=== PATIENT | female | born 1970 | race Caucasian/White ===

== ENCOUNTER → 2016-11-03 | Outpatient (CLI) | payer BC ==
--- NOTE | 2016-11-03 15:28 | US ---
EXAMINATION TYPE: US thyroid st tissue head/neck DATE OF EXAM: 11/03/2016 1:01 PM COMPARISON: NONE CLINICAL HISTORY: E04.9 NONTOXIC GOITER. GLAND SIZE: Right Lobe: 4.8 x 1.4 x 1.4 cm Overall Parenchyma: homogenous Left Lobe: 4.4 x 1.4 x 1.1 cm Overall Parenchyma: homogeneous Isthmus Thickness: 0.2 cm NODULES RIGHT: # of nodules measured on right: 0 LEFT: # of nodules measured on left: 0 ISTHMUS: # of nodules measured in the isthmus: 0 Bilateral neck scanned, no evidence of lymphadenopathy. IMPRESSION: No evidence of solid or cystic thyroid nodule.
== END | disposition home or self-care (01) ==
LOC: RADUSWWP 12:50
PROVIDERS: ATTEND Family Medicine
DX: E04.9 Nontoxic goiter, unspecified (principal)
CPT/HCPCS: 76536

== ENCOUNTER → 2017-10-12 | Outpatient (CLI) | payer BC ==
--- NOTE | 2017-10-13 11:56 | MM ---
Reason for exam: screening (asymptomatic). Last mammogram was performed 1 year and 6 months ago. History: Took hormonal contraceptives for 2 years. Physical Findings: A clinical breast exam by your physician is recommended on an annual basis and results should be correlated with mammographic findings. MG Screening Mammo w CAD Bilateral CC and MLO view(s) were taken. Prior study comparison: April 10, 2016, bilateral MG screening mammo w CAD. August 29, 2014, bilateral MG screening mammo w CAD. The breast tissue is heterogeneously dense. This may lower the sensitivity of mammography. Stable benign calcifications right breast. Focal asymmetry upper outer left breast 4cm from nipple. This finding is changed when compared with previous exams. ASSESSMENT: Incomplete: need additional imaging evaluation, BI-RAD 0 RECOMMENDATION: Special view mammogram of the left breast. If lesion persists on supplemental views, image directed ultrasound is recommended. [facility] will attempt to contact patient to return for supplemental views and ultrasound if indicated.
== END | disposition home or self-care (01) ==
LOC: RADMAMWWP 08:13
PROVIDERS: ATTEND Obstetrics & Gynecology
DX: Z12.31 Encounter for screening mammogram for malignant neoplasm of breast (principal)
CPT/HCPCS: 77067

== ENCOUNTER → 2017-10-21 | Outpatient (CLI) | payer BC ==
--- NOTE | 2017-10-21 13:48 | MM ---
Reason for exam: additional evaluation requested from abnormal screening. Last mammogram was performed less than 1 month ago. History: Took hormonal contraceptives for 2 years. Physical Findings: Nurse did not find any significant physical abnormalities on exam. MG Work Up Mamm w CAD LT Spot compression CC, spot compression MLO, and ML view(s) were taken of the left breast. Prior study comparison: October 12, 2017, bilateral MG screening mammo w CAD. April 10, 2016, bilateral MG screening mammo w CAD. The breast tissue is heterogeneously dense. This may lower the sensitivity of mammography. Central asymmetric density appears to disperse on spot views. Precautionary 6 month follow up recommended. These results were verbally communicated with the patient and result sheet given to the patient on 10/21/17. ASSESSMENT: Probably benign, BI-RAD 3 RECOMMENDATION: Follow-up diagnostic mammogram of the left breast in 6 months.
== END | disposition home or self-care (01) ==
LOC: RADMAMWWP 13:02
PROVIDERS: ATTEND Obstetrics & Gynecology
DX: R92.8 Other abnormal and inconclusive findings on diagnostic imaging of breast (principal)
CPT/HCPCS: 77065

== ENCOUNTER → 2018-04-30 | Outpatient (CLI) | payer BC ==
--- NOTE | 2018-04-30 08:28 | MM ---
Reason for exam: follow-up at short interval from prior study. Last mammogram was performed 6 months ago. History: Took hormonal contraceptives for 2 years. Physical Findings: Nurse did not find any significant physical abnormalities on exam. MG Diagnostic Mammo LT w CAD CC and MLO view(s) were taken of the left breast. Prior study comparison: October 21, 2017, left breast MG work up mamm w CAD LT. October 12, 2017, bilateral MG screening mammo w CAD. The breast tissue is heterogeneously dense. This may lower the sensitivity of mammography. No significant new findings when compared with previous films. These results were verbally communicated with the patient and result sheet given to the patient on 04/30/18. ASSESSMENT: Benign, BI-RAD 2 RECOMMENDATION: Return to routine screening mammogram schedule for both breasts. Back on schedule.
== END ==
LOC: RADMAMWWP 07:34
PROVIDERS: ATTEND Obstetrics & Gynecology
DX: R92.8 Other abnormal and inconclusive findings on diagnostic imaging of breast (principal)
CPT/HCPCS: 77065

== ENCOUNTER → 2019-01-04 | Outpatient (CLI) | payer BC ==
[2019-01-04 12:09] LABS: HCT 39.2 % (34.0-46.0); HGB 12.3 gm/dL (11.4-16.0); MCH 29.5 pg (25.0-35.0); MCHC 31.4 g/dL (31.0-37.0); MCV 94.1 fL (80.0-100.0); Mean Platelet Volume 7.2; Platelet Count 287 k/uL (150-450); RBC 4.17 m/uL (3.80-5.40); WBC 7.4 k/uL (3.8-10.6)
[2019-01-04 18:34] LABS: African American GFR (CKD) 85.8 (60.0-200.0); Albumin 4.3 g/dL (3.80-4.90); Albumin/Globulin Ratio 2.39 (1.60-3.17); Anion Gap 9.2 mmol/L (4.00-12.00); Calcium 9.3 mg/dL (8.7-10.3); Carbon Dioxide 23.8 mmol/L (21.6-31.8); Globulin 1.8 g/dL (1.6-3.3); LDL Cholesterol,Calculated 85.4 mg/dL (0.0-131.0); Potassium 4.7 mmol/L (3.5-5.5); Total Protein 6.1 g/dL (6.2-8.2); VLDL Calculation 17.6 mg/dL (5.00-40.00)
== END | disposition home or self-care (01) ==
LOC: LABWHC1 11:21
PROVIDERS: ATTEND Internal Medicine Clinical Cardiac Electrophysiology
DX: I48.0 Paroxysmal atrial fibrillation (principal); I49.5 Sick sinus syndrome; E78.5 Hyperlipidemia, unspecified
CPT/HCPCS: 36415; 80053; 80061; 84443; 85027

== ENCOUNTER → 2019-03-07 | Outpatient (CLI) | payer BC ==
--- NOTE | 2019-03-07 11:01 | MM ---
Reason for exam: screening (asymptomatic). Last mammogram was performed 10 months ago. History: Took hormonal contraceptives for 2 years. Physical Findings: A clinical breast exam by your physician is recommended on an annual basis and results should be correlated with mammographic findings. MG 3D Screening Mammo W/Cad Bilateral CC and MLO view(s) were taken. Prior study comparison: April 30, 2018, left breast MG diagnostic mammo LT w CAD. October 21, 2017, left breast MG work up mamm w CAD LT. April 10, 2016, bilateral MG screening mammo w CAD. The breast tissue is heterogeneously dense. This may lower the sensitivity of mammography. Finding: There are typically benign dystrophic, grouped/clustered calcifications in the upper quadrant, posterior middle position of the right breast. There is no discrete abnormality. ASSESSMENT: Benign, BI-RAD 2 RECOMMENDATION: Routine screening mammogram of both breasts in 1 year.
== END | disposition home or self-care (01) ==
LOC: RADMAMWWP 07:14
PROVIDERS: ATTEND Obstetrics & Gynecology
DX: Z12.31 Encounter for screening mammogram for malignant neoplasm of breast (principal)
CPT/HCPCS: 77063; 77067

== ENCOUNTER → 2020-05-01 | Outpatient (CLI) | payer BC | END | disposition home or self-care (01) | LOC: LABWHC1 14:59 | PROVIDERS: ATTEND Physician Assistant | DX: I48.0 Paroxysmal atrial fibrillation (principal) | CPT/HCPCS: 36415; 84443 ==

== ENCOUNTER → 2020-08-23 | Outpatient (CLI) | payer BC ==
[2020-08-23 15:51] LABS: HGB 13.4 gm/dL (11.4-16.0); MCH 32.5 pg (25.0-35.0); MCHC 34.4 g/dL (31.0-37.0); MCV 94.7 fL (80.0-100.0); Mean Platelet Volume 8.3; Platelet Count 225 k/uL (150-450); RBC 4.12 m/uL (3.80-5.40); RDW 11.7 % (11.5-15.5); WBC 7.8 k/uL (3.8-10.6)
[2020-08-23 16:15] LABS: African American GFR (CKD) >90 (>60 ml/min/1.73 sqM); Anion Gap 8 mmol/L; Blood Urea Nitrogen 16 mg/dL (7-17); Carbon Dioxide 28 mmol/L (22-30); Chloride 103 mmol/L (98-107); Non-African American GFR(CKD) >90 (>60 ml/min/1.73 sqM); Potassium 4.2 mmol/L (3.5-5.1); Sodium 139 mmol/L (137-145)
== END | disposition home or self-care (01) ==
LOC: LABPAT 14:44
PROVIDERS: ATTEND Internal Medicine Clinical Cardiac Electrophysiology
DX: Z01.812 Encounter for preprocedural laboratory examination (principal); I48.0 Paroxysmal atrial fibrillation
CPT/HCPCS: 36415; 80051; 82565; 84520; 85027

== ENCOUNTER 2020-08-30 08:38 | Day surgery (SDC) | payer BC ==
[2020-08-24 10:55] VITALS: BMI 26.6
[~2020-08-30 08:38] MED LIST: DEXAMETHASONE SOD PHOSPHATE 4 MG/ML 1 ML VIAL IV ONE; LIDOCAINE 1% (10MG/ML) FOR IV START INTRADERMA PRN; ONDANSETRON 4 MG/2 ML VIAL IVP ONE; SODIUM CHLORIDE 0.9% 1,000 ML IV SCH
[2020-08-30] MEDS ORDERED: MIDAZOLAM 2 MG/2 ML VIAL IV STA (10:01)
[2020-08-30] MEDS ORDERED: LIDOCAINE 1% INJ 10MG/ML (20 ML MDV) ONE ×2 (11:02→11:06)
[2020-08-30] MEDS ORDERED: HEPARIN SODIUM,PORCINE 10,000 UNIT/ML 1 ML VIAL ONE (11:06)
[2020-08-30] MEDS ORDERED: SUCCINYLCHOLINE CHLORIDE 100 MG/5 ML SYR IV ONE (11:06)
[2020-08-30] MEDS ORDERED: ISOPROTERENOL 250 MCG/1.25 ML SYR IV ONE (11:06)
[2020-08-30] MEDS ORDERED: PROTAMINE SULFATE 10 MG/ML 5 ML VIAL IV ONE (11:06)
[2020-08-30] MEDS ORDERED: PROPOFOL 10 MG/ML 20 ML VIAL IV ONE (11:06)
[2020-08-30] MEDS ORDERED: PHENYLEPHRINE-0.9% NACL SYG 1,000 MCG/10 ML SYRINGE ONE (11:06)
[2020-08-30] MEDS ORDERED: fentaNYL (PF) 50 MCG/ML 2 ML AMP ONE (11:06)
[2020-08-30] MEDS ORDERED: MIDAZOLAM 2 MG/2 ML VIAL ONE (11:06)
[2020-08-30] MEDS ORDERED: HEPARIN SODIUM (1,000 UNIT/ML) 1,000 UNIT in SODIUM CHLORIDE 0.9% 1,000 ML IRRIGATION ONE (11:34)
[2020-08-30] MEDS ORDERED: HEPARIN SOD,PORK IN 0.45% NACL 25,000 UNIT in 0.45% NACL 1 250ML.BAG IV ONE (11:34)
[2020-08-30] MEDS ORDERED: LIDOCAINE 1% INJ 10MG/ML (20 ML MDV) SQ ONE (11:50)
[2020-08-30] MEDS ORDERED: SODIUM CHLORIDE 0.9% 500 ML 500 ML IV ONE (15:00)
[2020-08-30] MEDS ORDERED: IOPAMIDOL-370 100ML BTL INJ ONE (15:10)
[2020-08-30] MEDS ORDERED: HYDROcodone/APAP 5-325MG 1 EACH TAB PO PRN (15:21)
[2020-08-30] MEDS ORDERED: ACETAMINOPHEN TAB 325 MG TAB PO PRN (15:21)
[2020-08-30] MEDS ORDERED: ONDANSETRON 4 MG/2 ML VIAL IVP ONE (16:00)
--- NOTE | 2020-08-30 16:21 | P.EPPROC ---
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 Written informed consent was obtained prior to the procedure. The procedure was performed under general anesthesia Venous sheaths were placed in the right and left femoral veins Via this diagnostic mapping and ablation catheter placed The patient was in sinus rhythm the start of the study Sinus cycle length 1953 ms, CO interval 140 ms, QRS 106 ms and QT 450 ms AH 84 ms and HV 35 ms Left and right transseptal catheterization was performed RA pressure 2/-1/0 LA pressure 7/-3/1 Pulmonary vein isolation Cryoablation of the pulmonary veins was performed. The left inferior followed by the left superior veins were isolated at and antral level Subsequently the right superior vein which and a very complex anatomy with 3 veins, was isolated at a very antral level The right inferior pulmonary vein was then isolated at an anterolateral level Phrenic nerve remained intact. It was monitored through the procedure Esophagus this was deflected leftwards for the part of the procedure The segment between the right superior and left superior pulmonary veins, at the level of the roof of the left atrium was less than 1.8 cm Linear ablation with RF ablation was performed Complete line of block was made Linear ablation along the septum of the left atrium was performed this was connected to the right side of the roof line, down to the transseptal site Complex fractionated electrograms are tolerated Following that a detailed the study is performed on and off Isuprel No sustained atrial fibrillation was induced Occasional brief nonsustained atrial arrhythmias less than a few seconds 1 episode of nonsustained arrhythmia of longer duration, but less than 15-20 seconds This was concentric activation in the coronary sinus poles Delayed Negative P waves in lead V1, upright in the inferior leads This is a very short episode of atrial fibrillation of less than 15-20 seconds and was the only episode induced post-ablation All catheters were removed at the end of the procedure Heparin was reversed Hemostasis was assured Plan Continue flecainide and atenolol for 6 weeks and taper of thereafter Continue Xarelto for 3 months
[2020-08-30] MEDS ORDERED: ACETAMINOPHEN IV (For NPO) 1,000 MG in EMPTY BAG 1 BAG IVPB ONE (16:30)
[2020-08-30] MEDS ORDERED: RIVAROXABAN 20 MG TAB PO SCH (17:30)
[2020-08-30] MEDS: LACTATED RINGERS 1,000 ML IV SCH ×2 (18:39→20:40)
[2020-08-30] MEDS: FLECAINIDE 50 MG TAB PO SCH (20:37)
[2020-08-31] MEDS ORDERED: atenoloL 50 MG TAB PO SCH (09:00)
--- NOTE | 2020-08-31 09:29 | DS ---
DISCHARGE SUMMARY Cynthia Wilson is a 50-year-old female who has paroxysmal atrial fibrillation and is breaking through on flecainide. She has had a pulmonary vein isolation performed 6 to 7 years back. She underwent an atrial fibrillation ablation with antral isolation of the pulmonary veins with cryoablation followed by linear ablation in the roof of the left atrium and in the septum of the left atrium. Following that, we were not able to induce any sustained arrhythmias. She had very occasional brief nonsustained irregular atrial tachycardia that lasted seconds but this was an infrequent finding despite a fairly aggressive stimulation protocol. This morning, she is lying comfortably in bed. She has no chest discomfort. She does have a sore throat. Mouth is dry. Mucosa are dry. Blood pressure is in the 90s. She has gotten up and walked around. Her groin is healed well. There is no hematoma. No swelling. No tenderness at all. Normal heart sounds. No murmurs, no gallop, no rub. Breath sounds are clear. Abdomen is soft, nontender. Extremities are warm. IMPRESSION: 1. Paroxysmal atrial fibrillation with rapid ventricular response refractory to drug therapy. 2. Status post pulmonary vein isolation and linear ablation. PLAN: Discharge home today if stable after 12 noon. Continue Xarelto 20 mg p.o. daily for 3 months. Continue flecainide and beta blockers for now and I will see her in the office in about 1-2 weeks. MMODL / IJN: [id number] /
[2020-08-31] MEDS: FLECAINIDE 50 MG TAB PO SCH (10:21)
[2020-08-31 10:36] VITALS: BP 97/63; PULSE 79; RESP 18; TEMP 98.1
== END 2020-08-31 13:57 | disposition home or self-care (01) ==
LOC: CATHEP 08:38 → 3SCARD 15:02 → CATHEP 08-31 13:57
PROVIDERS: ATTEND Internal Medicine Clinical Cardiac Electrophysiology
DX: I48.0 Paroxysmal atrial fibrillation (principal); I45.89 Other specified conduction disorders; I47.1 Supraventricular tachycardia; I49.5 Sick sinus syndrome; Z79.899 Other long term (current) drug therapy; Z79.891 Long term (current) use of opiate analgesic; Z72.0 Tobacco use; Z98.890 Other specified postprocedural states; J02.9 Acute pharyngitis, unspecified
CPT/HCPCS: 85347; 93656; 93623; 93662; 93609; 81025; C1769 ×4; C1894 ×2; C1730 ×2; C1759; C1893; C1733; C1766; J2250; J2720; J1644 ×3; J2405; J2001; J3010; J0131; J2370; J0330; J2704; Q9967

== ENCOUNTER → 2020-12-11 | Outpatient (CLI) | payer BC ==
--- NOTE | 2020-12-12 13:59 | MM ---
Reason for exam: screening (asymptomatic). Last mammogram was performed 1 year and 9 months ago. History: Took hormonal contraceptives for 2 years. Physical Findings: A clinical breast exam by your physician is recommended on an annual basis and results should be correlated with mammographic findings. MG Screening Mammo w CAD Bilateral CC and MLO view(s) were taken. Prior study comparison: March 07, 2019, bilateral MG 3d screening mammo w/cad. April 30, 2018, left breast MG diagnostic mammo LT w CAD. October 12, 2017, bilateral MG screening mammo w CAD. April 10, 2016, bilateral MG screening mammo w CAD. The breast tissue is heterogeneously dense. This may lower the sensitivity of mammography. No significant changes when compared with prior studies. ASSESSMENT: Benign, BI-RAD 2 RECOMMENDATION: Routine screening mammogram of both breasts in 1 year.
== END | disposition home or self-care (01) ==
LOC: RADMAMWWP 14:11
PROVIDERS: ATTEND Obstetrics & Gynecology
DX: Z12.31 Encounter for screening mammogram for malignant neoplasm of breast (principal)
CPT/HCPCS: 77067

== ENCOUNTER → 2021-12-12 | Outpatient (CLI) | payer BC ==
--- NOTE | 2021-12-13 07:52 | MM ---
Reason for Exam: Screening (asymptomatic). Last screening mammogram was performed 12 month(s) ago. Patient History: Menarche at age 9. First Full-Term at age 27. Patient used Hormonal Contraceptives for 2 years. Last menstrual period: 11/04/2021 Risk Values: Ivonne 5 year model risk: 1.3%. NCI Lifetime model risk: 10.3%. Prior Study Comparison: 04/30/2018 Left Diagnostic Mammogram, [facility]. 03/07/2019 Bilateral Screening Mammogram, [facility]. 12/11/2020 Bilateral Screening Mammogram, [facility]. Tissue Density: The breast tissue is heterogeneously dense. This may lower the sensitivity of mammography. Findings: Analyzed By CAD. There is no suspicious group of microcalcifications or new suspicious mass in either breast. Overall Assessment: Negative, BI-RAD 1 Management: Screening Mammogram of both breasts in 1 year. A clinical breast exam by your physician is recommended on an annual basis and results should be correlated with mammographic findings. Electronically signed and approved by: Oli Apple M.D. Radiologis
== END | disposition home or self-care (01) ==
LOC: RADMAMWWP 08:40
PROVIDERS: ATTEND Obstetrics & Gynecology
DX: Z12.31 Encounter for screening mammogram for malignant neoplasm of breast (principal)
CPT/HCPCS: 77067

== ENCOUNTER → 2022-12-15 | Outpatient (CLI) | payer BC ==
--- NOTE | 2022-12-16 08:36 | MM ---
Reason for Exam: Screening (asymptomatic). Last screening mammogram was performed 12 month(s) ago. Patient History: Menarche at age 9. First Full-Term at age 27. Patient used Hormonal Contraceptives for 2 years. Last menstrual period: 04/18/2022 Risk Values: Ivonne 5 year model risk: 1.4%. NCI Lifetime model risk: 10.1%. Prior Study Comparison: 03/07/2019 Bilateral Screening Mammogram, [facility]. 12/11/2020 Bilateral Screening Mammogram, [facility]. 12/12/2021 Bilateral MG screening mammo w CAD, [facility]. Tissue Density: There are scattered fibroglandular densities. Findings: Analyzed By CAD. There is no suspicious group of microcalcifications or new suspicious mass in either breast. Overall Assessment: Negative, BI-RAD 1 Management: Screening Mammogram of both breasts in [address] [facility] will attempt to contact patient to return for supplemental views and ultrasound if indicated. Patient should continue monthly self-breast exams. A clinical breast exam by your physician is recommended on an annual basis. This exam should not preclude additional follow-up of suspicious palpable abnormalities. Note on Ivonne scores and lifetime risk: 1. A Ivonne score greater than 3% is considered moderate risk. If this is the case, consider specialist referral to assess eligibility for a risk reducing agent. 2. If overall lifetime risk for the development of breast cancer is 20% or higher, the patient may qualify for future screening with alternating mammogram and breast MRI. Electronically signed and approved by: Armando Rodriguez DO
== END | disposition home or self-care (01) ==
LOC: RADMAMWWP 08:19
PROVIDERS: ATTEND Obstetrics & Gynecology
DX: Z12.31 Encounter for screening mammogram for malignant neoplasm of breast (principal)
CPT/HCPCS: 77063; 77067

== ENCOUNTER → 2024-01-07 | Outpatient (CLI) | payer BC ==
--- NOTE | 2024-03-03 13:50 | MM ---
Reason for Exam: Screening (asymptomatic). Last mammogram was performed 1 year(s) and 1 month(s) ago. Patient History: Menarche at age 9. First Full-Term at age 27. Postmenopausal. Patient used Hormonal Contraceptives for 2 years. Risk Values: Ivonne 5 year model risk: 1.5%. NCI Lifetime model risk: 9.7%. Prior Study Comparison: 12/11/2020 Bilateral Screening Mammogram, [facility]. 12/12/2021 Bilateral MG screening mammo w CAD, [facility]. 12/15/2022 Bilateral MG 3D screening mammo w/cad, [facility]. Tissue Density: There are scattered areas of fibroglandular density. Findings: Analyzed By CAD. The pattern is symmetrical. No significant interval change is evident. Spherical calcifications are right breast. No suspicious groups of microcalcifications, spiculated or lobular masses, architectural distortion or other secondary signs of malignancy are mammographically apparent. Overall Assessment: Benign, BI-RAD 2 Management: Screening Mammogram of both breasts in 1 year. A negative mammogram report should not preclude additional follow up of suspicious palpable abnormalities. Patient should continue monthly self breast exam. A clinical breast exam by your physician is recommended on an annual basis and results should be correlated with mammographic findings. Note on Ivonne scores and lifetime risk: 1. A Ivonne score greater than 3% is considered moderate risk. If this is the case, consider specialist referral to assess eligibility for a risk reducing agent. 2. If overall lifetime risk for the development of breast cancer is 20% or higher, the patient may qualify for future screening with alternating mammogram and breast MRI. Electronically signed and approved by: Aram Rivera D.O. Radiologis
== END | disposition home or self-care (01) ==
LOC: RADMAMWWP 07:41
PROVIDERS: ATTEND Obstetrics & Gynecology
DX: Z12.31 Encounter for screening mammogram for malignant neoplasm of breast (principal); R92.323 Mammographic fibroglandular density, bilateral breasts; Z78.0 Asymptomatic menopausal state
CPT/HCPCS: 77063; 77067